=== PATIENT | male | born 1965 | race African-American/Black ===

== ENCOUNTER 2016-09-03 09:09 | Emergency (ER) | payer SELFPAY ==
[~2016-09-03] VITALS: Ht 175.3 cm; Wt 90.0 kg
[2016-09-03 09:11] VITALS: BP 115/82; PULSE 87; RESP 15; TEMP 98.2; O2SAT 98
[2016-09-03] MEDS ORDERED: KETOROLAC TROMETHAMINE 30 MG/ML (IVP) VIAL IV PUSH ONE (09:30)
[2016-09-03] MEDS ORDERED: SODIUM CHLORIDE 0.9% FLUSH 10 ML FLUSH IV FLUSH PRN (09:30)
[2016-09-03] MEDS ORDERED: SODIUM CHLOR 0.9% 1000 ML INJ 1,000 ML IV SCH (09:30)
--- NOTE | 2016-09-03 09:31 | PD ---
HPI Chief Complaint: Abdominal Pain Time Seen by Provider: 09:22 Travel History International Travel<30 days: No Contact w/Intl Traveler<30days: No Traveled to known affect area: No History of Present Illness HPI This is a 51-year-old male who presents to the emergency department with lower back pain described as right around his hips, constant, moderate severity, worse with moving, improved with rest. Been going on for about a month. He went to an urgent care and they prescribed him a muscle relaxer which says just makes him tired. He says over the past several days he's developed lower cramping abdominal pain mostly in the middle of his lower abdomen. He has been having some urinary frequency and urgency. He denies any discharge from his penis or dysuria. He denies any vomiting or diarrhea. He says he has felt feverish. He's never had symptoms like this before. [facility] Past Medical History Narrative Medical Takes acyclovir for genital herpes Social History Alcohol Use: No Tobacco Use: No Substance Use: No Allergies-Medications (Allergen,Severity, Reaction): Coded Allergies: Penicillin (Verified Allergy, Unknown, 09/03/16) Reported Meds & Prescriptions Reported Meds & Active Scripts Active Reported Flexeril (Cyclobenzaprine HCl) 10 Mg Tab 10 Mg PO BID Tramadol (Tramadol HCl) 50 Mg Tab 50 Mg PO BID PRN Review of Systems Except as stated in HPI: all other systems reviewed are Neg Physical Exam Narrative GENERAL:Well appearing, no acute distress SKIN: Focused skin assessment warm and dry. HEAD: Atraumatic. Normocephalic. EYES: Pupils equal and round. No injection or drainage. ENT: Moist mucous membranes NECK: Trachea midline. CARDIOVASCULAR: Regular rate and rhythm. No murmur appreciated. RESPIRATORY: Clear to auscultation. Breath sounds equal bilaterally. GASTROINTESTINAL: Abdomen soft, tender to palpation in the suprapubic region with no rebound or guarding. MUSCULOSKELETAL: No obvious deformities. No focal vertebral tenderness. NEUROLOGICAL: Awake and alert. No obvious cranial nerve deficits. Moving all extremities. PSYCHIATRIC: Appropriate mood and affect; insight and judgment normal. Data Data Last Documented VS Vital Signs Date Time Temp Pulse Resp B/P Pulse Ox O2 Delivery O2 Flow Rate FiO2 09/03/16 09:11 98.2 87 15 115/82 98 Orders Complete Blood Count With Diff (09/03/16 09:27) Comprehensive Metabolic Panel (09/03/16 09:27) Lipase (09/03/16 09:27) Urinalysis - C+S If Indicated (09/03/16 09:27) Iv Access Insert/Monitor (09/03/16 09:27) Ecg Monitoring (09/03/16 09:27) Oximetry (09/03/16 09:27) Sodium Chloride 0.9% Flush (Ns Flush) (09/03/16 09:30) Ketorolac Inj (Toradol Inj) (09/03/16 09:30) Sodium Chlor 0.9% 1000 Ml Inj (Ns 1000 M (09/03/16 09:30) Ct Abd/Pel W Iv Contrast(Rout) (09/03/16 ) Ct Lumb Spine W/O Contrast (09/03/16 ) Iohexol 350 Inj (Omnipaque 350 Inj) (09/03/16 12:01) Labs Laboratory Tests Test 09/03/16 09:36 White Blood Count 3.8 TH/MM3 Red Blood Count 4.46 MIL/MM3 Hemoglobin 11.7 GM/DL Hematocrit 36.8 % Mean Corpuscular Volume 82.5 FL Mean Corpuscular Hemoglobin 26.3 PG Mean Corpuscular Hemoglobin 31.9 % Concent Red Cell Distribution Width 12.2 % Platelet Count 145 TH/MM3 Mean Platelet Volume 9.8 FL Neutrophils (%) (Auto) 37.7 % Lymphocytes (%) (Auto) 40.0 % Monocytes (%) (Auto) 10.2 % Eosinophils (%) (Auto) 11.1 % Basophils (%) (Auto) 1.0 % Neutrophils # (Auto) 1.4 TH/MM3 Lymphocytes # (Auto) 1.5 TH/MM3 Monocytes # (Auto) 0.4 TH/MM3 Eosinophils # (Auto) 0.4 TH/MM3 Basophils # (Auto) 0.0 TH/MM3 CBC Comment DIFF FINAL Differential Comment Urine Color YELLOW Urine Turbidity CLEAR Urine pH 5.5 Urine Specific Severance 1.025 Urine Protein NEG mg/dL Urine Glucose (UA) NEG mg/dL Urine Ketones NEG mg/dL Urine Occult Blood NEG Urine Nitrite NEG Urine Bilirubin NEG Urine Urobilinogen LESS THAN 2.0 MG/DL Urine Leukocyte Esterase NEG Urine WBC LESS THAN 1 /hpf Urine Squamous Epithelial <1 /hpf Cells Urine Mucus FEW /lpf Microscopic Urinalysis Comment CULT NOT INDICATED Sodium Level 141 MEQ/L Potassium Level 4.0 MEQ/L Chloride Level 107 MEQ/L Carbon Dioxide Level 26.9 MEQ/L Anion Gap 7 MEQ/L Blood Urea Nitrogen 11 MG/DL Creatinine 1.00 MG/DL Estimat Glomerular Filtration 78 ML/MIN Rate Random Glucose 82 MG/DL Calcium Level 8.7 MG/DL Total Bilirubin 0.3 MG/DL Aspartate Amino Transf 28 U/L (AST/SGOT) Alanine Aminotransferase 28 U/L (ALT/SGPT) Alkaline Phosphatase 33 U/L Total Protein 7.7 GM/DL Albumin 4.0 GM/DL Lipase 167 U/L [facility] Medical Decision Making Medical Screen Exam Complete: Yes Emergency Medical Condition: Yes Interpretation(s) afebrile, no tachycardia, normotensive mild leukocytosis anemia electrolytes within normal limits lipase is normal urinalysis negative for infection Last 24 hours Impressions Abdomen/Pelvis CT 09/03/16 0000 Signed Impressions: Service Date/Time: Saturday, September 03, 2016 11:53 - CONCLUSION: I do not see an etiology of patient's abdominal pain. Usama Li MD FACR Ct lumbar spine: no acute process Differential Diagnosis Urinary tract infection, colitis, compression fracture, herniated disc, sacroiliitis Narrative Course This is a 51-year-old male who presents to the emergency department with back pain that now has been radiating into his lower abdomen. This is been going on for about a month. Labs were obtained which were all reassuring. CT abdomen and pelvis and lumbar spine were obtained which were unremarkable. Urinalysis is negative for infection. I think his pain is musculoskeletal. I recommended anti-inflammatories and follow up with the primary care physician. Patient will be discharged home. Diagnosis Primary Impression: Low back pain Qualified Code: M54.5 - Acute bilateral low back pain without sciatica Patient Instructions: General Instructions Additional Instructions: If you develop weakness of your legs, difficulty walking, numbness of your legs or your genital or rectal area, loss of your bowel or bladder, or difficulty urinating return to the emergency department immediately. Followup with your primary care physician in one week if your symptoms have not improved. Med/Other Pt SpecificInfo: Prescription(s) given Scripts Meloxicam 15 Mg Tab15 Mg PO DAILY #30 TAB Ref 0 Prov:Highet,Deysi H. MD 09/03/16 Disposition: 01 DISCHARGE HOME Condition: Stable Deysi Anderson MD Sep 03, 2016 09:31
[2016-09-03] MEDS ORDERED: CYCL1TAB29 PO (09:44)
[2016-09-03] MEDS ORDERED: TRAM50TA PO (09:44)
[2016-09-03 10:17] LABS: AUTOMATED NEUTROPHIL # 1.4 TH/MM3 (1.8-7.7); EOSINOPHIL # 0.4 TH/MM3 (0-0.4); EOSINOPHIL % 11.1 % (0.0-4.0); HEMATOCRIT 36.8 % (39.0-51.0); HEMO FLAGS DIFF FINAL; LYMPHOCYTE # 1.5 TH/MM3 (1.0-4.8); MEAN CELL VOLUME 82.5 FL (80.0-100.0); MEAN CORPUSCULAR HEMOGLOBIN 26.3 PG (27.0-34.0); MEAN CORPUSCULAR HGB CONC 31.9 % (32.0-36.0); MONO % 10.2 % (0.0-8.0); NEUT % 37.7 % (16.0-70.0); PLATELET COUNT 145 TH/MM3 (150-450); RED BLOOD COUNT 4.46 MIL/MM3 (4.50-5.90); RED CELL DISTRIBUTION WIDTH 12.2 % (11.6-17.2); WHITE BLOOD COUNT 3.8 TH/MM3 (4.0-11.0)
[2016-09-03 10:28] LABS: BLOOD, URINE NEG (NEG); COMMENT (UR) CULT NOT INDICATED; CULTURE IF INDICATED CULT NOT INDICATED; GLUCOSE,URINE NEG (NEG); KETONE, URINE NEG (NEG); MUCUS URINE FEW /lpf (OCC); NITRITE,URINE NEG (NEG); PH, URINE 5.5 (5.0-8.5); SQUAMOUS EPITHELIAL CELL URINE <1 /hpf (0-5); URINE COLOR YELLOW (YELLW/STRAW)
[2016-09-03 10:32] LABS: ALT (GPT) 28 U/L (12-78); ANION GAP 7 MEQ/L (5-15); AST (GOT) 28 U/L (15-37); BICARBONATE 26.9 MEQ/L (21.0-32.0); BLOOD UREA NITROGEN 11 MG/DL (7-18); CHLORIDE 107 MEQ/L (98-107); GLOMERULAR FILTRATION RATE 78 ML/MIN (>89); SODIUM (NA) 141 MEQ/L (136-145)
[2016-09-03 10:34] LABS: ALKALINE PHOSPHATASE 33 U/L (45-117); TOTAL BILIRUBIN ADULT 0.3 MG/DL (0.2-1.0)
[2016-09-03] MEDS ORDERED: IOHEXOL 350 MG/ML 10 ML VIAL (for RAD DIAG) IV ONE (12:01)
--- NOTE | 2016-09-03 12:10 | RADRPT ---
EXAM DATE/TIME: 09/03/2016 11:53 [facility] COMPARISON: No previous studies available for comparison. INDICATIONS : Abdomen pain. IV CONTRAST: 100 cc Omnipaque 350 (iohexol) IV ORAL CONTRAST: No oral contrast ingested. RADIATION DOSE: 8.32 CTDIvol (mGy) MEDICAL HISTORY : None SURGICAL HISTORY : None. ENCOUNTER: Initial ACUITY: 1 day PAIN SCALE: 5/10 LOCATION: Bilateral abdomen. TECHNIQUE: Volumetric scanning of the abdomen and pelvis was performed. Using automated exposure control and ad justment of the mA and/or kV according to patient size, radiation dose was kept as low as reasonably achievable to obtain optimal diagnostic quality images. DICOM format image data is available electro nically for review and comparison. FINDINGS: The lung base is are clear. There is no pericardial effusion. The liver, spleen, pancreas, adrenals and kidneys are unremarkable. There is no adenopathy appreciated. The region of the cecum and terminal unremarkable. I see what looks like in normal appendix. Pelvic contents appear normal. Review of bone windows reveals only degenerative changes. CONCLUSION: I do not see an etiology of patient's abdominal pain. Usama Li MD FACR on September 03, 2016 at 12:03 Board Certified Radiologist. This report was verified electronically.
--- NOTE | 2016-09-03 12:53 | RADRPT ---
EXAM DATE/TIME: 09/03/2016 11:53 [facility] COMPARISON: No previous studies available for comparison. INDICATIONS : Back pain. RADIATION DOSE: ; Reconstructed from previous dataset MEDICAL HISTORY : None SURGICAL HISTORY : None. ENCOUNTER: Initial ACUITY: 1 day PAIN SCALE: 4/10 LOCATION: Bilateral lumbar TECHNIQUE: Volumetric scanning of the lumbar spine was performed. Multiplanar reconstructions in the sagittal, coronal and oblique axial planes were performed. Using automated exposure control and adjustment of the mA and/or kV according to patient size, radiation dose was kept as low as reasonably achievable t o obtain optimal diagnostic quality images. DICOM format image data is available electronically for review and comparison. FINDINGS: VERTEBRAE: Normal vertebral body height. ALIGNMENT: No evidence of subluxation. T12-L1: The thecal sac has a normal diameter. No evidence of disc bulge or protrusion. The neural foramina are patent bilaterally. L1-L2: The thecal sac has a normal diameter. No evidence of disc bulge or protrusion. The neural foramina are patent bilaterally. L2-L3: The thecal sac has a normal diameter. No evidence of disc bulge or protrusion. The neural foramina are patent bilaterally. L3-L4: The thecal sac has a normal diameter. No evidence of disc bulge or protrusion. The neural foramina are patent bilaterally. L4-L5: The thecal sac has a normal diameter. No evidence of disc bulge or protrusion. The neural foramina are patent bilaterally. L5-S1: The thecal sac has a normal diameter. No evidence of disc bulge or protrusion. The neural foramina are patent bilaterally. Mild degenerative changes are present in the SI joints. CONCLUSION: Mild SI joint degenerative changes otherwise negative. Usama Li MD FACR on September 03, 2016 at 12:42 Board Certified Radiologist. This report was verified electronically.
[2016-09-03] MEDS ORDERED: MELO-1 PO (13:24)
[2016-09-03 13:37] VITALS: BP 112/72; PULSE 82; RESP 16; O2SAT 98
== END 2016-09-03 13:38 | disposition home or self-care (01) ==
LOC: NEPD 09:09
DX: M54.5 Low back pain (principal); Z88.0 Allergy status to penicillin
CPT/HCPCS: 72131; 74177; 80053; 81001; 83690; 85025; 96361; 96374; 99285; J1885; J7030; Q9967